=== PATIENT | female | born 1990 | race Caucasian/White ===

== ENCOUNTER → 2017-06-15 | Outpatient (CLI) | payer MEDICAID, OTHER ==
--- NOTE | 2017-06-15 16:28 | Diagnostic Imaging Report ---
INDICATION: Irregular bleeding. COMPARISON: None. PROCEDURE: Real-time grayscale and color Doppler ultrasound of the pelvis is performed transabdominally and endovaginally. FINDINGS: The uterus measures 8.9 cm x 5.4 cm x 4.7 cm. Endometrium is thin measuring about 4 mm. Intrauterine device appears to be in good position within the endometrium. The left ovary measures 2.6 cm x 2.2 cm x 2.1 cm and appears unremarkable. The right ovary measures 3.3 cm x 3 cm x 2 cm. There is a 1.9 cm cystic lesion in the right adnexa, probably a paraovarian cyst, possibly ovarian cyst but benign in appearance. No free fluid is seen. Doppler imaging demonstrates normal blood flow to both ovaries. IMPRESSION: 1. Intrauterine device appears to be in good position within the endometrium. 2. A 1.9 cm benign-appearing cyst in the right adnexa possibly paraovarian or ovarian. 3. No additional abnormality is demonstrated. Dictated by: Dictated on workstation # [id number]
== END ==
LOC: RAD 13:22
PROVIDERS: ATTEND Nurse Practitioner Family
DX: N83.201 Unspecified ovarian cyst, right side (principal); Z97.5 Presence of (intrauterine) contraceptive device
CPT/HCPCS: 76830; 76856

== ENCOUNTER → 2022-09-22 | Outpatient (CLI) | payer MEDICAID | LOC: LAB 17:21 | PROVIDERS: ATTEND Obstetrics & Gynecology | DX: O02.0 Blighted ovum and nonhydatidiform mole (principal) | CPT/HCPCS: 36415; 84702 ==

== ENCOUNTER 2023-01-11 08:36 | Emergency (ER) | payer MEDICAID ==
[~2023-01-11] VITALS: Ht 154.9 cm; Wt 58.9 kg
[2023-01-11] MEDS ORDERED: NS IV 1000 ML 1,000 ML IV STA (09:08)
--- NOTE | 2023-01-11 09:12 | ED GI ---
General Chief Complaint: Abdominal/GI Problems Stated Complaint: VOMITING | NAUSEA | Nursing Triage Note: pt amb to rm 7 with complaints of n/v x2days. pt states that she is 8 wks pregant and sent by her OB doctor. Source of Information: Patient Exam Limitations: No Limitations History of Present Illness Date Seen by Provider: Jan 11, 2023 Time Seen by Provider: 08:56 Initial Comments Here with persistent nausea and vomiting for the last 2 days. States that she cannot keep anything down. She reports that she is [address] TEAGUE. She was instructed to come here due to persistent nausea and vomiting. This is her fifth with 2 live births and 2 miscarriages. She has not had this type of issue in previous pregnancies. She denies recent illness including denies fever, sore throat, runny nose or cough. She does have stomach upset and then stomach muscle pain. Denies vaginal bleeding. She has not had ultrasound Timing/Duration: 2-3 Days Severity/Quality: Moderate, Burning, Other (Nausea and vomiting) Location: Epigastric Modifying Factors: Worsens With Eating Associated Symptoms: No Fever/Chills; Heartburn, Nausea/Vomiting, Weakness Allergies and Home Medications Allergies Coded Allergies: No Known Drug Allergies (Verified Allergy, Unknown, 03/24/09) Patient Home Medication List Home Medication List Reviewed: Yes Review of Systems Review of Systems Constitutional: see HPI, chills; No fever EENTM: No Symptoms Reported Respiratory: No Symptoms Reported Cardiovascular: Denies Chest Pain, Denies Edema Gastrointestinal: See HPI Genitourinary: Denies Burning, Denies Pain Musculoskeletal: muscle pain Skin: no symptoms reported Psychiatric/Neurological: No Symptoms Reported Past Mazttwz-Xjrcfn-Bscjxi Hx Patient Social History Tobacco Use?: No Substance use?: No Alcohol Use?: No Past Medical History Surgeries: No Respiratory: No Cardiac: No Neurological: No : Yes Hx : 5 Hx Para: 2 Hx Total # of Abortions (Sp): 2 Reproductive Disorders: No Genitourinary: No Gastrointestinal: No Family Medical History Reviewed Nursing Family Hx Physical Exam Vital Signs Vital Signs - First Documented 01/11/23 08:39 Temp 36.1 Pulse 80 B/P (MAP) 121/78 (92) Pulse Ox 99 O2 Delivery Room Air Capillary Refill : Height/Weight/BMI Height: 5'1.50" Weight: 146lbs. oz. 66.058727dy; 24.00 BMI Method: General Appearance: WD/WN, moderate distress HEENT: PERRL/EOMI, pharynx normal Neck: full range of motion, supple Respiratory: lungs clear, normal breath sounds Cardiovascular: regular rate, rhythm, no murmur Gastrointestinal: soft; No guarding, No rebound; tenderness (Diffuse) Extremities: non-tender, normal inspection Back: normal inspection, no CVA tenderness, no vertebral tenderness Neurologic/Psychiatric: alert, oriented x 3 Progress/Results/Core Measures Results/Orders Lab Results Laboratory Tests Test 01/11/23 09:05 Range/Units White Blood Count 13.4 H 4.3-11.0 10^3/uL Red Blood Count 4.92 3.80-5.11 10^6/uL Hemoglobin 15.6 11.5-16.0 g/dL Hematocrit 44 35-52 % Mean Corpuscular Volume 88 80-99 fL Mean Corpuscular Hemoglobin 32 25-34 pg Mean Corpuscular Hemoglobin Concent 36 32-36 g/dL Red Cell Distribution Width 12.2 10.0-14.5 % Platelet Count 218 130-400 10^3/uL Mean Platelet Volume 11.5 9.0-12.2 fL Immature Granulocyte % (Auto) 0 % Neutrophils (%) (Auto) 86 H 42-75 % Lymphocytes (%) (Auto) 9 L 12-44 % Monocytes (%) (Auto) 4 0-12 % Eosinophils (%) (Auto) 0 0-10 % Basophils (%) (Auto) 0 0-10 % Neutrophils # (Auto) 11.6 H 1.8-7.8 10^3/uL Lymphocytes # (Auto) 1.2 1.0-4.0 10^3/uL Monocytes # (Auto) 0.5 0.0-1.0 10^3/uL Eosinophils # (Auto) 0.1 0.0-0.3 10^3/uL Basophils # (Auto) 0.0 0.0-0.1 10^3/uL Immature Granulocyte # (Auto) 0.1 0.0-0.1 10^3/uL Neutrophils % (Manual) 84 % Lymphocytes % (Manual) 10 % Monocytes % (Manual) 6 % Toxic Granulation 1+ Platelet Estimate ADEQUATE Blood Morphology Comment NORMAL Sodium Level 137 135-145 MMOL/L Potassium Level 3.8 3.6-5.0 MMOL/L Chloride Level 105 98-107 MMOL/L Carbon Dioxide Level 16 L 21-32 MMOL/L Anion Gap 16 H 5-14 MMOL/L Blood Urea Nitrogen 10 7-18 MG/DL Creatinine 0.83 0.60-1.30 MG/DL Estimat Glomerular Filtration Rate 97 BUN/Creatinine Ratio 12 Glucose Level 167 H 70-105 MG/DL Calcium Level 9.5 8.5-10.1 MG/DL Corrected Calcium 9.2 8.5-10.1 MG/DL Total Bilirubin 1.1 H 0.1-1.0 MG/DL Aspartate Amino Transf (AST/SGOT) 15 5-34 U/L Alanine Aminotransferase (ALT/SGPT) 14 0-55 U/L Alkaline Phosphatase 56 40-136 U/L Total Protein 8.0 6.4-8.2 GM/DL Albumin 4.4 3.2-4.5 GM/DL My Orders Orders - CASSIDY GONGORA MD Ondansetron Injection (Zofran Injectio (01/11/23 09:15) Ns Iv 1000 Ml (Sodium Chloride 0.9%) (01/11/23 09:08) Ed Iv/Invasive Line Start (01/11/23 09:08) Cbc With Automated Diff (01/11/23 09:08) Comprehensive Metabolic Panel (01/11/23 09:08) Ua Culture If Indicated (01/11/23 09:08) Manual Differential (01/11/23 09:05) Us Ob<14 Wks Sngle W/Transvag (01/11/23 09:12) Promethazine Injection (Phenergan Injec (01/11/23 09:30) Medications Given in ED Current Medications Medications Dose Ordered Sig/Allyssa Route Start Time Stop Time Status Last Admin Dose Admin Ondansetron HCl 4 mg ONCE ONCE IVP 01/11/23 09:15 01/11/23 09:16 DC 01/11/23 09:17 4 MG Vital Signs/I&O 01/11/23 08:39 Temp 36.1 Pulse 80 B/P (MAP) 121/78 (92) Pulse Ox 99 O2 Delivery Room Air Blood Pressure Mean: 92 Progress Progress Note : Progress Note Seen and evaluated. IV, labs including CBC and CMP as well as UA ordered. Normal saline 1 L bolus, Zofran 4 mg IV ordered. We did discuss pain medicine but patient declined. We will get ultrasound when patient is feeling a little better as she has not had this in yet and with the persistent nausea and vomiting. Differential includes nausea and vomiting of , hyperemesis gravidarum, electrolyte abnormality, dehydration 0947: Patient has had persistent nausea. We will initiate Phenergan 25 mg IV by adding that to the free-flowing IV already established. CBC resulted and shows white count slightly elevated at 13.4 but can be physiologic during . Chemistries reviewed and electrolytes overall are normal with normal creatinine but glucose is elevated at 167 and CO2 was low at 16 with a gap of 16 and she likely has metabolic acidosis from dehydration and starvation secondary to nausea and vomiting. UA is pending which will help to determine if she has ketones. Monitor patient. 1209: Patient is doing much better and is actually resolved with respect to nausea and vomiting. She states her pain is better. Ultrasound results noted and reviewed with the patient. She has not given UA yet but she feels much better and would like to go home and I think this is reasonable. I did discuss the case with Dr. TEAGUE, patient's audit clerk and reviewed ultrasound results and current situation. He is okay with discharge home. I did discuss all of this with the patient and family. Discharged home with return precautions. Patient and family verbalized understand instructions and agreement with plan. I will send a copy of the note to Dr. TEAGUE. Patient is B+ blood type by record review. Diagnostic Imaging Diagonstic Imaging: Ultrasound Plain Films/CT/US/NM/MRI: pelvis Comments [facility] [place], [place] NAME: KATERINE ALTAMIRANO [facility] REC#: [id number] PT STATUS: REG ER : 1990 PHYSICIAN: CASSIDY GONGORA MD ADMIT DATE: 01/11/23/ER Draft Date of Exam:01/11/23 US OB<14 WKS SNGLE W/TRANSVAG INDICATION: Excessive nausea and bleeding during . Uterus measures 9.5 x 5.3 x 8.9 cm and contains an intrauterine gestational sac. pole is present with crown-rump length of 1 cm. Gestational sac morphology is normal with an approximately 2.0 x 0.7 x 2.0 cm anechoic region adjacent to gestational sac which likely represents subchorionic hematoma. There is blood flow to the ovaries bilaterally with an approximately 3.2 x 2.1 x 2.1 cm cystic structure in the right ovary which could represent corpus luteum. Embryonic cardiac activity is present with a rate of 153 bpm. IMPRESSION: At least moderate size subchorionic fluid collection may represent rinku-gestational hematoma. Intrauterine gestation is present with estimated age of 7 weeks and 1 day indicating sonographic EDC of 08/29/2023. Dictated on workstation # [id number] Dict: 01/11/23 1156 Trans: 01/11/23 1200 CVB [id number] Interpreted by: ANDREW SIEGEL MD Electronically signed by: Departure Impression Primary Impression: Nausea and vomiting during Disposition: 01 HOME, SELF-CARE Condition: Improved Departure-Patient Inst. Decision time for Depature: 12:11 Referrals: [facility] (PCP/Family) Primary Care Physician FRANCISCA TEAGUE DO Patient Instructions: Nausea and Vomiting of Add. Discharge Instructions: All discharge instructions reviewed with patient and/or family. Voiced understanding. Clear or light diet and then advance as tolerated. You need to drink plenty of fluids by taking small sips frequently. You may try light diet such as crackers or toast and other foods such as light fruit during times of nausea. Take medications as directed but only if needed. Follow-up with Dr. TEAGUE for recheck and further evaluation. Return for return of nausea and vomiting that is persisting, weakness, dehydration, fever, pain, bleeding greater than 2 pads per hour for more than 2 hours or other concerns as needed. Scripts Ondansetron (Ondansetron Odt) 4 Mg Tab.rapdis 4 MG PO Q6H PRN for NAUSEA/VOMITING, #8 TAB 0 Refills Prov: CASSIDY GONGORA MD 01/11/23 Copy Copies To 1: FRANCISCA TEAGUE TIMOTHY D MD Jan 11, 2023 09:12
[2023-01-11 09:14] LABS: BASOPHILS % (AUTO) 0 % (0-10); EOSINOPHILS # (AUTO) 0.1 10^3/uL (0.0-0.3); EOSINOPHILS % (AUTO) 0 % (0-10); HEMATOCRIT 44 % (35-52); HEMOGLOBIN 15.6 g/dL (11.5-16.0); LYMPHOCYTES # (AUTO) 1.2 10^3/uL (1.0-4.0); LYMPHOCYTES % (AUTO) 9 % (12-44); MEAN CORPUSCULAR HEMOGLOBIN 32 pg (25-34); MEAN CORPUSCULAR HGB CONC 36 g/dL (32-36); MEAN CORPUSCULAR VOLUME 88 fL (80-99); MEAN PLATELET VOLUME 11.5 fL (9.0-12.2); MONOCYTES # (AUTO) 0.5 10^3/uL (0.0-1.0); MONOCYTES % (AUTO) 4 % (0-12); NEUTROPHILS # (AUTO) 11.6 10^3/uL (1.8-7.8); NEUTROPHILS % (AUTO) 86 % (42-75); PLATELET COUNT 218 10^3/uL (130-400); WHITE BLOOD COUNT 13.4 10^3/uL (4.3-11.0)
[2023-01-11] MEDS ORDERED: ONDANSETRON 4 MG/2 ML (SDV) Z0FRAN IVP ONE (09:15)
[2023-01-11 09:26] LABS: ALBUMIN 4.4 GM/DL (3.2-4.5)
[2023-01-11 09:27] LABS: POTASSIUM 3.8 MMOL/L (3.6-5.0)
[2023-01-11 09:28] LABS: CALCIUM 9.5 MG/DL (8.5-10.1)
[2023-01-11] MEDS ORDERED: PROMETHAZINE INJ 25 MG/ML (PHENERGAN) AMP IVP STA (09:30)
[2023-01-11 09:31] LABS: BILIRUBIN,TOTAL 1.1 MG/DL (0.1-1.0)
[2023-01-11 09:32] LABS: LYMPHOCYTES % (MANUAL) 10 %; MONOCYTES % (MANUAL) 6 %; NEUTROPHILS % (MANUAL) 84 %; PLATELET ESTIMATE ADEQUATE; RBC MORPH NORMAL; TOXIC GRANULATION/VACUOLAZATIO 1+
[2023-01-11 09:33] LABS: CREATININE SERUM 0.83 MG/DL (0.60-1.30)
--- NOTE | 2023-01-11 12:00 | Diagnostic Imaging Report ---
INDICATION: Excessive nausea and bleeding during . Uterus measures 9.5 x 5.3 x 8.9 cm and contains an intrauterine gestational sac. pole is present with crown-rump length of 1 cm. Gestational sac morphology is normal with an approximately 2.0 x 0.7 x 2.0 cm anechoic region adjacent to gestational sac which likely represents subchorionic hematoma. There is blood flow to the ovaries bilaterally with an approximately 3.2 x 2.1 x 2.1 cm cystic structure in the right ovary which could represent corpus luteum. Embryonic cardiac activity is present with a rate of 153 bpm. IMPRESSION: At least moderate size subchorionic fluid collection may represent rinku-gestational hematoma. Intrauterine gestation is present with estimated age of 7 weeks and 1 day indicating sonographic EDC of 08/29/2023. Dictated by: Dictated on workstation # [id number]
[2023-01-11] MEDS ORDERED: ONDA4TAB11 PO (12:15)
[2023-01-11 12:40] VITALS: BP 95/64
== END 2023-01-11 12:40 | disposition home or self-care (01) ==
LOC: EDUNIT# 08:36 → ER 08:37
DX: O21.9 Vomiting of pregnancy, unspecified (principal); O99.111 Other diseases of the blood and blood-forming organs and certain disorders involving the immune mechanism complicating pregnancy, first trimester; O99.810 Abnormal glucose complicating pregnancy; D72.829 Elevated white blood cell count, unspecified; R79.81 Abnormal blood-gas level; Z28.310 Unvaccinated for COVID-19; Z3A.08 8 weeks gestation of pregnancy
CPT/HCPCS: 36415; 76801; 76817; 80053; 85007; 85027

== ENCOUNTER → 2023-04-12 | Outpatient (CLI) | payer MEDICAID ==
[~2023-04-12] MED LIST: ONDA4TAB11 PO
--- NOTE | 2023-04-12 17:15 | Diagnostic Imaging Report ---
INDICATION: patient, anatomical screening. TECHNIQUE: Multiple real-time grayscale images were obtained over the gravid uterus. COMPARISON: Comparison made to 01/11/2023. FINDINGS: A single live intrauterine fetus seen measuring at 20 weeks 4 days in size. Fetus is in breech presentation at this time. Amniotic fluid index is normal at 15.1 cm. Placenta is anterior with no evidence of previa. heart rate is 133 bpm. Cervical length is 4.5 cm. Distance of the placental tip to the internal os was 9 cm. survey showed normal-appearing kidneys and bladder. Normal-appearing stomach was seen. Intracranial ventricles appear normal. Four-chamber heart appeared normal. Three-vessel cord and cord insertion appear normal. Views of the spine were unremarkable. Biometrical measurements are as follows: Biparietal 4.62 cm, age 20 weeks 0 days. Head circumference 18.04 cm, age 20 weeks 4 days. Abdominal circumference 15.60 cm, age 20 weeks 6 days. Femur length 3.38 cm, age 20 weeks 5 days. Sonographic estimate age: 20 weeks 4 days. Sonographic estimated date of delivery: 08/26/2023. Estimated Weight: 367 gm (+/- 54 gm). LMP percentile: 57%. heart rate: 133 beats per minute. number: 1 of 1. IMPRESSION: Single live intrauterine fetus measuring 20 weeks 4 days in size with normal interval growth compared to the prior study. There is no detectable anatomic abnormality. Dictated by: Dictated on workstation # [id number]
== END ==
LOC: RAD 14:50
PROVIDERS: ATTEND Nurse Practitioner Women's Health
DX: Z34.92 Encounter for supervision of normal pregnancy, unspecified, second trimester (principal); Z3A.20 20 weeks gestation of pregnancy
CPT/HCPCS: 76805

== ENCOUNTER → 2023-07-20 | Outpatient (CLI) | payer MEDICAID | LOC: LABNPT 12:00 | DX: O13.9 Gestational [pregnancy-induced] hypertension without significant proteinuria, unspecified trimester (principal); Z3A.00 Weeks of gestation of pregnancy not specified | CPT/HCPCS: 82570; 84156 ==

== ENCOUNTER → 2023-08-14 | Outpatient (CLI) | payer MEDICAID ==
[~2023-08-14] MED LIST changes: +FERR325T24; +PREN1TAB79 PO; +SERT-413
== END ==
LOC: LABNPT 11:49
PROVIDERS: ATTEND Obstetrics & Gynecology
DX: O13.9 Gestational [pregnancy-induced] hypertension without significant proteinuria, unspecified trimester (principal)
CPT/HCPCS: 82570; 84156

== ENCOUNTER 2023-08-15 05:45 | Inpatient (IN) | payer MEDICAID ==
[2023-08-15] VITALS (83 sets, daily range): BP systolic 104–152; BP diastolic 58–96
[~2023-08-15] VITALS: Ht 154.9 cm; Wt 71.7 kg
[~2023-08-15 05:45] MED LIST changes: -FERR325T24; -PREN1TAB79 PO; -SERT-413
[2023-08-15] MEDS ORDERED: LACTATED RINGERS 1,000 ML 500 ML IV PRN (06:00)
[2023-08-15] MEDS ORDERED: MINERAL OIL 30 ML UDC TOP PRN (06:00)
[2023-08-15] MEDS: D5 LR 1,000 ML IV SOLN 1,000 ML IV SCH ×3 (06:19→21:49)
[2023-08-15 06:24] LABS: BASOPHILS # (AUTO) 0.1 10^3/uL (0.0-0.1); BASOPHILS % (AUTO) 1 % (0-10); EOSINOPHILS # (AUTO) 0.5 10^3/uL (0.0-0.3); EOSINOPHILS % (AUTO) 4 % (0-10); HEMOGLOBIN 11.2 g/dL (11.5-16.0)
[2023-08-15 06:26] LABS: HEMATOCRIT 33 % (35-52); LYMPHOCYTES # (AUTO) 1.3 10^3/uL (1.0-4.0); LYMPHOCYTES % (AUTO) 13 % (12-44); MEAN CORPUSCULAR HEMOGLOBIN 33 pg (25-34); MEAN CORPUSCULAR HGB CONC 34 g/dL (32-36); MEAN CORPUSCULAR VOLUME 96 fL (80-99); MONOCYTES # (AUTO) 0.8 10^3/uL (0.0-1.0); MONOCYTES % (AUTO) 8 % (0-12); NEUTROPHILS # (AUTO) 7.7 10^3/uL (1.8-7.8); NEUTROPHILS % (AUTO) 74 % (42-75); PLATELET COUNT 123 10^3/uL (130-400); WHITE BLOOD COUNT 10.4 10^3/uL (4.3-11.0)
[2023-08-15 06:33] LABS: COLOR,URINE YELLOW
[2023-08-15 06:34] LABS: AMORPHOUS SEDIMENT,UR FEW AMOR PHOSPHATE /LPF; BACTERIA,URINE MODERATE /HPF; BILIRUBIN,URINE NEGATIVE (NEGATIVE); CLARITY,URINE CLEAR; GLUCOSE, URINE (UA) NEGATIVE (NEGATIVE); KETONES,URINE NEGATIVE (NEGATIVE); LEUKOCYTE ESTERASE ,URINE TRACE (NEGATIVE); NITRITE,URINE NEGATIVE (NEGATIVE); PROTEIN,URINE NEGATIVE (NEGATIVE); RBC,URINE 0-2 /HPF
[2023-08-15] MEDS ORDERED: SERT-413 (07:08)
[2023-08-15] MEDS ORDERED: PREN1TAB79 PO (07:08)
[2023-08-15] MEDS ORDERED: FERR325T24 (07:08)
--- NOTE | 2023-08-15 07:29 | History & Physical-OB ---
OB - Chief Complaint & HPI Date/Time Date of Admission: Date of Admission: Aug 15, 2023 at 05:45 Date seen by a Provider: Aug 15, 2023 Time Seen by a Provider: 07:15 Chief Complaint/History OB-Reason for Admission/Chief: Induction of Labor Hx : 5 Hx Para: 2 Expected Date of Delivery: Aug 27, 2023 Gestational Age in Weeks: 38 Gestational Age in Days: 2 Indication for induction: medical complication Admission Nurse Assessment Rev: Yes History of Labs GBS neg Allergies and Home Medications Allergies Coded Allergies: No Known Drug Allergies (Verified , 03/24/09) Patient Home Medication List Home Medication List Reviewed: Yes Ferrous Sulfate (Ferosul) 325 Mg (65 Mg Iron) Tablet, (Reported) Entered as Reported by: RANDY GARNETT on 08/15/23707 Last Action: Reviewed Ondansetron (Ondansetron Odt) 4 Mg Tab.rapdis, 4 MG PO Q6H PRN for NAUSEA/VOMITING Prescribed by: CASSIDY GONGORA on 01/11/23 1215 Vit W-Ca,Fe,FA(<1 mg) ( Vitamins) 27 Mg Iron-800 Mcg Tablet, 1 EACH PO, (Reported) Entered as Reported by: RANDY GARNETT on 08/15/23707 Last Action: Reviewed Sertraline HCl (Sertraline HCl) 50 Mg Tablet, (Reported) Entered as Reported by: RANDY GARNETT on 08/15/23707 Last Action: Reviewed OB - History Hx of Present Care: Yes Ultrasounds: Normal mid trimester US Obstetrical Complications: Gestational Hypertension Medical Complications: None Obstetrical History Hx Termination: No Hx Multiple Gestation: No Hx Stillbirth: No Hx Complication: No Hx Induced Hypertens: No Hx Maternal Gestational Diabet: No Delivery History Hx Dystocia: No Hx Large For Gestational Age I: No Hx Small for Gestational Age I: No Hx Section: No Hx Vaginal Delivery Post C-Sec: No Hx Blood Disorders: Yes Patient Past Medical History nc Immunizations Influenza Vaccine Up-to-Date: No; Not Current OB - Admission Exam Physical Exam Vitals: Vital Signs 08/15/23 06:15 Temp 36.6 Pulse 96 Resp 18 Pulse Ox 98 O2 Delivery Room Air HEENT: NCAT Heart: Rhythm Normal Lungs: Clear Abdomen: Gravid Extremities: Normal Cervical Dilatation: 3cm Effacement: 75% Station: -1 Membranes: Intact Heart Rate: 130's Accelerations: Accelerations Present Decelerations: No Decelerations Short Term Variability: Present Merchandise Flow Team Leader Variability: Average (6-25) Contractions on Admission: 6-10 Minutes Apart Intensity: Mild Labs Laboratory Tests Test 08/15/23 06:19 Range/Units White Blood Count 10.4 4.3-11.0 10^3/uL Red Blood Count 3.42 L 3.80-5.11 10^6/uL Hemoglobin 11.2 L 11.5-16.0 g/dL Hematocrit 33 L 35-52 % Mean Corpuscular Volume 96 80-99 fL Mean Corpuscular Hemoglobin 33 25-34 pg Mean Corpuscular Hemoglobin Concent 34 32-36 g/dL Red Cell Distribution Width 13.9 10.0-14.5 % Platelet Count 123 L 130-400 10^3/uL Mean Platelet Volume 12.0 9.0-12.2 fL Immature Granulocyte % (Auto) 1 % Neutrophils (%) (Auto) 74 42-75 % Lymphocytes (%) (Auto) 13 12-44 % Monocytes (%) (Auto) 8 0-12 % Eosinophils (%) (Auto) 4 0-10 % Basophils (%) (Auto) 1 0-10 % Neutrophils # (Auto) 7.7 1.8-7.8 10^3/uL Lymphocytes # (Auto) 1.3 1.0-4.0 10^3/uL Monocytes # (Auto) 0.8 0.0-1.0 10^3/uL Eosinophils # (Auto) 0.5 H 0.0-0.3 10^3/uL Basophils # (Auto) 0.1 0.0-0.1 10^3/uL Immature Granulocyte # (Auto) 0.1 0.0-0.1 10^3/uL Percent Immature Platelet Fraction 12.4 H 0.0-7.6 % Urine Color YELLOW Urine Clarity CLEAR Urine pH 7.0 5-9 Urine Specific [place] 1.015 L 1.016-1.022 Urine Protein NEGATIVE NEGATIVE Urine Glucose (UA) NEGATIVE NEGATIVE Urine Ketones NEGATIVE NEGATIVE Urine Nitrite NEGATIVE NEGATIVE Urine Bilirubin NEGATIVE NEGATIVE Urine Urobilinogen 0.2 < = 1.0 MG/DL Urine Leukocyte Esterase TRACE H NEGATIVE Urine RBC (Auto) NEGATIVE NEGATIVE Urine RBC 0-2 /HPF Urine WBC 2-5 /HPF Urine Squamous Epithelial Cells 5-10 /HPF Urine Crystals PRESENT H /LPF Urine Amorphous Sediment FEW CRISTIAN PHOSPHATE H /LPF Urine Bacteria MODERATE H /HPF Urine Casts NONE /LPF Urine Mucus SMALL H /LPF Urine Culture Indicated YES Syphilis Total Antibody Negative Negative OB - Assessment/Plan/Diagnosis Assessment Assessment: induction of labor Admission Dx 31 you @ 38 weeks GHTN GBS neg Admission Status: Inpatient Order (span 2 midnights) Reason for Inpatient Admission: IOL at 38 weeks Plan Plan: Induction Induction Method: FRANCISCA ESQUIVEL DO Aug 15, 2023 07:29
[2023-08-15] MEDS ORDERED: OXYTOCIN DRIP PRE-MIX 500 ML IV SCH (08:15)
[2023-08-15] MEDS ORDERED: fentaNYL 2 mcg/ml BUPIVA 0.125 100 ML ONE (08:45)
[2023-08-15] MEDS ORDERED: fentaNYL INJECTION 100 MCG/2 ML VIAL ONE (09:52)
[2023-08-15] MEDS ORDERED: BUPIVACAINE 0.25% 10 ML VIAL ONE (09:52)
[2023-08-15] MEDS: fentaNYL 2 mcg/ml BUPIVA 0.125 100 ML EPI SCH ×2 (10:07→18:22)
[2023-08-15] MEDS ORDERED: fentaNYL INJECTION 100 MCG/2 ML VIAL INJ ONE (10:15)
[2023-08-15] MEDS ORDERED: LACTATED RINGERS 1,000 ML 1,000 ML IV ONE ×2 (10:15)
[2023-08-15] MEDS ORDERED: ONDANSETRON INJECTION 4 MG/2 ML (SDV) IV PRN (10:15)
[2023-08-15] MEDS ORDERED: NALOXONE 0.4 MG/ML 1 ML VIAL IV PRN (10:15)
[2023-08-16] VITALS (30 sets, daily range): BP systolic 103–152; BP diastolic 57–94
[2023-08-16] MEDS ORDERED: PROMETHAZINE INJ 25 MG/ML VIAL IVP ONE (01:45)
[2023-08-16] MEDS: fentaNYL 2 mcg/ml BUPIVA 0.125 100 ML EPI SCH (02:31)
[2023-08-16] MEDS ORDERED: LIDOCAINE 2% w/EPI 1:200,000 20 ML VIAL ONE (02:42)
[2023-08-16] MEDS: OXYTOCIN DRIP PRE-MIX 500 ML IV SCH ×2 (03:23→03:47)
--- NOTE | 2023-08-16 03:35 | OB Labor & Delivery Record ---
L&D History Date of Service Date of Service: Aug 16, 2023 History Expected Date of Delivery: Aug 27, 2023 Gestational Age in Weeks: 38 Hx : 5 Hx Para: 2 Complications Events: Induced HTN, Routine care Operative Indications (Cesarea: N/A-Vaginal Delivery Intrapartal Events: None L&D Stage1 Stage One Onset of Labor - Date: Aug 16, 2023 Monitors and Tracing Monitor Mode: External Heart Rate: 120 Monitor Accelerations: Uniform Monitor Decelerations: Variable Station: 0 Custodial Variability: Average (6-10) Short Term Variability: Present Presentation: Vertex Vital Signs VS - Last 72 Hours, by Label 08/15/23 08/15/23 08/15/23 08/15/23 06:15 07:20 07:34 07:50 Temp 36.6 36.5 Pulse 96 88 106 100 Resp 18 20 20 20 B/P (MAP) 142/93 (109) 142/96 (111) 148/91 (110) Pulse Ox 98 O2 Delivery Room Air Room Air Room Air Room Air 08/15/23 08/15/23 08/15/23 08/15/23 08:05 08:20 08:35 08:50 Pulse 90 89 81 82 Resp 20 20 20 20 B/P (MAP) 126/78 (94) 122/85 (97) 134/79 (97) 135/81 (99) O2 Delivery Room Air Room Air Room Air Room Air 08/15/23 08/15/23 08/15/23 08/15/23 09:05 09:20 09:35 09:50 Pulse 84 88 83 87 Resp 20 20 20 20 B/P (MAP) 130/84 (99) 135/82 (99) 130/78 (95) 138/88 (105) O2 Delivery Room Air Room Air Room Air Room Air 08/15/23 08/15/23 08/15/23 08/15/23 09:55 10:02 10:08 10:12 Pulse 107 98 109 91 Resp 20 20 20 20 B/P (MAP) 152/93 (112) 141/88 (105) 113/85 (94) 132/75 (94) Pulse Ox 99 99 99 99 O2 Delivery Room Air Room Air Room Air Room Air 10/10/23 10/10/23 10/10/23 10/10/23 10:17 10:22 10:26 10:32 Temp 37.3 Pulse 99 97 87 82 Resp 20 20 20 20 B/P (MAP) 123/74 (90) 124/79 (94) 142/85 (104) 132/82 (99) Pulse Ox 98 97 97 99 O2 Delivery Room Air Room Air Room Air Room Air 08/15/23 08/15/23 08/15/23 08/15/23 10:36 10:42 10:47 10:51 Pulse 86 83 84 80 Resp 20 20 20 20 B/P (MAP) 136/81 (99) 131/80 (97) 133/83 (100) 125/79 (94) Pulse Ox 97 98 98 98 O2 Delivery Room Air Room Air Room Air Room Air 08/15/23 08/15/23 08/15/23 08/15/23 10:56 11:01 11:08 11:12 Pulse 82 81 82 83 Resp 20 96 96 96 B/P (MAP) 119/65 (83) 123/75 (91) 128/69 (88) 122/72 (89) Pulse Ox 97 97 97 97 O2 Delivery Room Air Room Air Room Air Room Air 08/15/23 08/15/23 08/15/23 08/15/23 11:18 11:27 11:32 11:37 Pulse 81 78 79 83 Resp 20 20 20 20 B/P (MAP) 124/64 (84) 124/71 (88) 132/76 (94) 131/77 (95) Pulse Ox 97 96 96 97 O2 Delivery Room Air Room Air Room Air Room Air 08/15/23 08/15/23 08/15/23 08/15/23 11:43 11:48 11:53 11:57 Temp 36.9 Pulse 83 76 73 83 Resp 20 20 20 20 B/P (MAP) 140/78 (98) 129/78 (95) 129/74 (92) 136/81 (99) Pulse Ox 97 98 98 98 O2 Delivery Room Air Room Air Room Air Room Air 08/15/23 08/15/23 08/15/23 08/15/23 12:02 12:15 12:30 12:45 Pulse 86 88 85 81 Resp 20 20 20 20 B/P (MAP) 125/76 (92) 136/86 (103) 143/90 (107) 122/75 (91) Pulse Ox 98 100 100 100 O2 Delivery Room Air Room Air Room Air Room Air 08/15/23 08/15/23 08/15/23 08/15/23 13:00 13:15 13:30 13:45 Temp 36.1 Pulse 84 68 69 73 Resp 20 20 20 20 B/P (MAP) 121/73 (89) 131/74 (93) 123/70 (87) 124/71 (88) Pulse Ox 100 100 100 100 O2 Delivery Room Air Room Air Room Air Room Air 08/15/23 08/15/23 08/15/23 08/15/23 13:52 14:00 14:15 14:30 Pulse 82 72 72 83 Resp 20 20 20 20 B/P (MAP) 144/73 (96) 125/74 (91) 131/77 (95) 124/79 (94) Pulse Ox 100 98 100 100 O2 Delivery Room Air Room Air Room Air Room Air 08/15/23 08/15/23 08/15/23 08/15/23 14:45 15:00 15:15 15:30 Pulse 80 74 70 70 Resp 20 20 20 20 B/P (MAP) 122/73 (89) 119/78 (92) 115/70 (85) 115/70 (85) Pulse Ox 100 100 100 100 O2 Delivery Room Air Room Air Room Air Room Air 08/15/23 08/15/23 08/15/23 08/15/23 15:45 16:00 16:20 16:35 Pulse 73 75 75 80 Resp 20 20 20 20 B/P (MAP) 131/77 (95) 122/77 (92) 120/77 (91) 104/59 (74) Pulse Ox 100 100 98 100 O2 Delivery Room Air Room Air Room Air Room Air 08/15/23 08/15/23 08/15/23 08/15/23 16:50 17:05 17:20 17:35 Pulse 85 88 87 96 Resp 20 20 20 20 B/P (MAP) 106/63 (77) 131/77 (95) 127/79 (95) 123/79 (94) Pulse Ox 98 98 98 96 O2 Delivery Room Air Room Air Room Air Room Air 08/15/23 08/15/23 08/15/23 08/15/23 17:50 18:05 18:20 18:35 Temp 36.3 Pulse 85 89 92 86 Resp 20 20 20 20 B/P (MAP) 126/80 (95) 133/83 (100) 122/78 (93) 129/76 (93) Pulse Ox 96 96 97 98 O2 Delivery Room Air Room Air Room Air Room Air 08/15/23 08/15/23 08/15/23 08/15/23 18:44 19:05 19:30 19:45 Temp 36.9 Pulse 93 97 101 94 Resp 20 20 20 20 B/P (MAP) 133/74 (93) 125/84 (98) 140/87 (104) 133/90 (104) Pulse Ox 97 97 98 97 O2 Delivery Room Air Room Air Room Air Room Air 08/15/23 08/15/23 08/15/23 08/15/23 20:00 20:15 20:30 20:45 Pulse 100 96 107 99 Resp 20 20 20 20 B/P (MAP) 130/79 (96) 138/78 (98) 125/73 (90) Pulse Ox 97 97 96 95 O2 Delivery Room Air Room Air Room Air Room Air 08/15/23 08/15/23 08/15/23 08/15/23 21:00 21:15 21:30 21:45 Temp 37.1 Pulse 103 93 102 100 Resp 20 20 20 20 B/P (MAP) 119/71 (87) 107/58 (74) 121/63 (82) 127/74 (91) Pulse Ox 95 93 O2 Delivery Room Air Room Air Room Air Room Air 08/15/23 08/15/23 08/15/23 08/15/23 22:00 22:15 22:30 22:45 Pulse 98 100 101 103 Resp 20 20 20 20 B/P (MAP) 127/74 (91) 124/76 (92) 125/79 (94) 134/76 (95) O2 Delivery Room Air Room Air Room Air Room Air 08/15/23 08/15/23 08/15/23 08/15/23 23:00 23:15 23:30 23:45 Pulse 103 92 87 92 Resp 20 20 20 20 B/P (MAP) 135/79 (97) 144/72 (96) 130/76 (94) 134/75 (94) O2 Delivery Room Air Room Air Room Air Room Air 08/16/23 08/16/23 08/16/23 10/11/23 00:00 00:15 00:30 00:45 Pulse 96 94 90 90 Resp 20 20 20 20 B/P (MAP) 135/73 (93) 134/75 (94) 128/66 (86) 128/66 (86) O2 Delivery Room Air Room Air Room Air Room Air 08/16/23 08/16/23 08/16/23 08/16/23 01:00 01:15 01:30 01:45 Pulse 97 89 101 90 Resp 20 20 20 20 B/P (MAP) 138/76 (96) 141/82 (101) 147/91 (109) 133/86 (102) O2 Delivery Room Air Room Air Room Air Room Air Rupture of Membranes Spontaneous Ruture of Membrane: No Amniotic Membrane Rupture Time: 714 Amniotic Membrane Fluid Desc.: Clear Vaginal Bleeding Description: Normal Show Induction/Anesthesia Epidural Cath Placement - Time: 1001 Progress/Notes Patient admitted at 38 weeks for IOL due to GHTN. AROM performed followed by pitocin augmentation to max dose of 14 mu. She received an epidural and progressed to complete and + 2 station L&D Stage2 Stage Two Stage II Date: Aug 16, 2023 Monitors and Tracing Monitor Mode: External Heart Rate: 120 Monitor Accelerations: Uniform Custodial Variability: Average (6-10) Short Term Variability: Present Position: Right Occiput Anterior Presentation: Vertex Cord Descript/Complications Cord Vessel Description: 3 Vessels Delivery Type Delivery Method: Spontaneous Vaginal Anterior Shoulder: Right Episiotomy/Perineal Laceration Laceraction(s)/Extensions: No Condition of Infant Delivery Notes live female infant weight and apgars pending see RN notes. Baby doing well after to maternal abdomen. Condition of Infant Condition of : Living Exam: No Observed Abnormalities Resuscitation Resuscitation: N/A - Spontaneous Resp L&D Stage3 Stage Three Stage III Date: Aug 16, 2023 Pictocin Pitocin Administration mu/min: 12 Pitocin ml/hr: 12 Pitocin Administration Comment: 30 mu wide open after delivery of placenta Placenta Delivery Placenta Delivery: Spontaneous Delivery Summary Summary Estimated blood loss (mL): 250 Attending at delivery: Francisca Teague DO Condition of Delivery Examined: Cervix Examined, Uterus Explored Post Hemorrhage: No Condition of Mother stable Condition of Infant (s) stable FRANCISCA TEAGUE DO Aug 16, 2023 03:35
[2023-08-16] MEDS ORDERED: NALOXONE 0.4 MG/ML 1 ML VIAL IV PRN (03:45)
[2023-08-16] MEDS ORDERED: BENZOCAINE/MENTHOL (DERMOPLAST) 56 ML CAN TP PRN (03:45)
[2023-08-16] MEDS ORDERED: WITCH HAZEL(TUCKS) 40 EA JAR TOP PRN (03:45)
[2023-08-16] MEDS ORDERED: DIBUCAINE 1% OINTMENT 28 GM TUBE TOP PRN (03:45)
[2023-08-16] MEDS ORDERED: Tetanus/Diphtheria/Pertussis (Acell) ADULT Vaccine 0.5 ML IM ONE (03:45)
[2023-08-16] MEDS ORDERED: MEASLES, MUMPS, RUBELLA VACCINE (MMR) SQ ONE (03:45)
[2023-08-16] MEDS ORDERED: CATHETER FLUSH 10 ML SYR IV SCH (06:00)
[2023-08-16] MEDS: ACETAMINOPHEN 500 MG TABLET PO SCH ×3 (06:03→22:23)
[2023-08-16] MEDS: IBUPROFEN 600 MG TABLET PO SCH ×3 (06:03→20:39)
--- NOTE | 2023-08-16 07:13 | Anesthesia-Regional Post-Op ---
Regional Patient Condition Mental Status: Alert, Oriented x3 Circulation: Same as Pre-Op Headache: Absent Sensation: Full Recovery Motor Block: Absent Post Op Complications Complications None Follow Up Care/Instructions Patient Instructions None needed. Anesthesia/Patient Condition Patient is doing well, no complaints, stable vital signs, no apparent adverse anesthesia problems. No complications reported per nursing. PAPI [place] CRNA Aug 16, 2023 07:13
[2023-08-16] MEDS: FERROUS SULFATE 325 MG (IRON) TABLET PO SCH (09:48)
[2023-08-16] MEDS: DOCUSATE SODIUM 100 MG CAPSULE PO SCH ×2 (09:48→20:39)
[2023-08-16] MEDS: PRENATAL VITAMIN TABLET PO SCH (09:48)
[2023-08-17 02:32] VITALS: BP 119/66
[2023-08-17] MEDS: IBUPROFEN 600 MG TABLET PO SCH ×2 (02:32→08:07)
[2023-08-17 05:47] LABS: BASOPHILS # (AUTO) 0.1 10^3/uL (0.0-0.1); BASOPHILS % (AUTO) 1 % (0-10); EOSINOPHILS # (AUTO) 0.5 10^3/uL (0.0-0.3); EOSINOPHILS % (AUTO) 5 % (0-10); HEMATOCRIT 28 % (35-52); HEMOGLOBIN 9.5 g/dL (11.5-16.0); LYMPHOCYTES # (AUTO) 1.8 10^3/uL (1.0-4.0); LYMPHOCYTES % (AUTO) 17 % (12-44); MEAN CORPUSCULAR HEMOGLOBIN 32 pg (25-34); MEAN CORPUSCULAR HGB CONC 34 g/dL (32-36); MEAN CORPUSCULAR VOLUME 96 fL (80-99); MEAN PLATELET VOLUME 11.6 fL (9.0-12.2); MONOCYTES # (AUTO) 0.8 10^3/uL (0.0-1.0); MONOCYTES % (AUTO) 7 % (0-12); NEUTROPHILS # (AUTO) 7.4 10^3/uL (1.8-7.8); NEUTROPHILS % (AUTO) 70 % (42-75); PLATELET COUNT 107 10^3/uL (130-400); WHITE BLOOD COUNT 10.6 10^3/uL (4.3-11.0)
[2023-08-17 06:13] VITALS: BP 137/85
[2023-08-17] MEDS: ACETAMINOPHEN 500 MG TABLET PO SCH (06:14)
--- NOTE | 2023-08-17 07:00 | Postpartum Progress Note ---
Note Note Day # 1 Subjective: Patient is without complaints. Ambulating, voiding. Tolerating a regular diet without nausea or vomiting. Normal lochia. Pain is well controlled with oral pain medications. Objective: Physical Exam: General - Alert and oriented, no apparent distress Abdomen - Soft, appropriately tender to palpation, non-distended, fundus firm at umbilicus Extremities - no edema, negative Samira's bilaterally Assessment: PPD 1 NVD Acute blood loss anemia Plan: Routine care. Encourage breast feeding. Encourage ambulation. Ferrous sulfate supplementation. Plan for discharge today Vitals - Labs Vital Signs - I&O Vital Signs Date Time Temp Pulse Resp B/P (MAP) Pulse Ox O2 Delivery O2 Flow Rate FiO2 08/17/23 06:13 36.4 78 18 137/85 (102) 98 Room Air 08/17/23 02:32 36.2 83 18 119/66 (83) 96 Room Air 08/16/23 22:23 36.5 99 18 129/80 (96) 97 Room Air 08/16/23 18:15 36.3 90 18 132/86 (101) 99 Room Air 08/16/23 13:53 36.1 94 20 127/73 (91) Room Air 08/16/23 09:48 36.4 97 20 121/65 (83) Room Air Labs Laboratory Tests 08/17/23 05:36: White Blood Count 10.6, Red Blood Count 2.93L, Hemoglobin 9.5L, Hematocrit 28L, Mean Corpuscular Volume 96, Mean Corpuscular Hemoglobin 32, Mean Corpuscular Hemoglobin Concent 34, Red Cell Distribution Width 13.8, Platelet Count 107L, Mean Platelet Volume 11.6, Immature Granulocyte % (Auto) 1, Neutrophils (%) (Auto) 70, Lymphocytes (%) (Auto) 17, Monocytes (%) (Auto) 7, Eosinophils (%) (Auto) 5, Basophils (%) (Auto) 1, Neutrophils # (Auto) 7.4, Lymphocytes # (Auto) 1.8, Monocytes # (Auto) 0.8, Eosinophils # (Auto) 0.5H, Basophils # (Auto) 0.1, Immature Granulocyte # (Auto) 0.1 Microbiology 08/15/23 Urine Culture - Final, Complete NO GROWTH FRANCISCA TEAGUE DO Aug 17, 2023 07:00
--- NOTE | 2023-08-17 07:02 | Discharge Inst-Women's Service ---
Discharge Inst-Women's Serv Depart Medication/Instructions New, Converted or Re-Newed RX: Transmitted to Pharmacy Final Diagnosis PPD 1 NVD Problems Reviewed?: Yes Consults/Follow Up Additional Follow Up: Yes Orders/Referrals Dr. Teague in 6 weeks Activity Activity: Activity as Tolerated Driving Instructions: No Driving for 1 Week NO SMOKING: NO SMOKING Nothing Inside Vagina: No Douching, No [place], No Tampons Diet Discharge Diet: No Restrictions Symptoms to Report to : Bleeding Excessive, Pain Increased, Fever Over 101 Degrees F, Vaginal Bleeding Increase, Questions/Concerns For Any Problems or Questions: Contact Your Physician FRANCISCA TEAGUE DO Aug 17, 2023 07:02
[2023-08-17] MEDS ORDERED: IBUP-844 PO (07:04)
[2023-08-17] MEDS ORDERED: BENZ78AE5 TP (07:04)
[2023-08-17] MEDS ORDERED: DIBU30OI TOP (07:04)
[2023-08-17] MEDS ORDERED: FERR325T24 PO (07:04)
[2023-08-17] MEDS ORDERED: ACET-93 PO (07:04)
[2023-08-17] MEDS ORDERED: PNV1TABL67 PO (07:04)
[2023-08-17] MEDS ORDERED: DOCU100C37 PO (07:04)
[2023-08-17] MEDS: DOCUSATE SODIUM 100 MG CAPSULE PO SCH (08:07)
[2023-08-17] MEDS: PRENATAL VITAMIN TABLET PO SCH (08:07)
[2023-08-17] MEDS: FERROUS SULFATE 325 MG (IRON) TABLET PO SCH (08:07)
[2023-08-17 08:08] VITALS: BP 118/69
[2023-08-17 10:00] VITALS: BP 118/69
== END 2023-08-17 10:08 | disposition home or self-care (01) | DRG 806 ==
LOC: LDRP 05:45
PROVIDERS: ADMIT Obstetrics & Gynecology; ATTEND Obstetrics & Gynecology
PROC: 10E0XZZ Delivery of Products of Conception, External Approach (ICD-10-PCS; principal; 2023-08-16)
PROC: 10907ZC Drainage of Amniotic Fluid, Therapeutic from Products of Conception, Via Natural or Artificial Opening (ICD-10-PCS; 2023-08-16)
DX: O13.4 Gestational [pregnancy-induced] hypertension without significant proteinuria, complicating childbirth (principal); D62 Acute posthemorrhagic anemia; Z37.0 Single live birth; Z3A.38 38 weeks gestation of pregnancy; O90.81 Anemia of the puerperium
CPT/HCPCS: 36415; 81000; 85025; 86780; 86850; 86900; 86901; 87088